=== PATIENT | female | born 1985 | race Two or more races ===

== ENCOUNTER 2024-08-04 06:18 | Day surgery (SDC) | payer MEDICARE, OTHER ==
[2024-08-01 14:21] VITALS: BMI 51.0
[~2024-08-04 06:18] MED LIST: metroNIDAZOLE-NS PMX 500 MG in SALINE 1 100ML.BAG IVPB PRN
[2024-08-04] MEDS: IV FLUID CONTINUATION 1,000 ML IV ONE (06:49)
[2024-08-04] MEDS ORDERED: MIDAZOLAM 2 MG/2 ML VIAL IV PRN (07:00)
[2024-08-04] MEDS ORDERED: HYDROmorphone 0.5 MG/0.5 ML SYRINGE IVP PRN (07:00)
[2024-08-04] MEDS: ONDANSETRON 4 MG/2 ML VIAL IVP ONE (07:20)
[2024-08-04] MEDS: DEXAMETHASONE SOD PHOSPHATE 4 MG/ML 1 ML VIAL IV ONE (07:20)
[2024-08-04] MEDS: LACTATED RINGERS 1,000 ML IV SCH (07:21)
[2024-08-04 07:25] VITALS: RESP 16
[2024-08-04] MEDS ORDERED: hydrALAZINE HCL 20 MG/ML 1 ML VIAL ONE (07:30)
[2024-08-04] MEDS ORDERED: MIDAZOLAM 2 MG/2 ML VIAL ONE (07:30)
[2024-08-04] MEDS ORDERED: PROPOFOL 10 MG/ML 20 ML VIAL IV ONE (07:30)
[2024-08-04] MEDS ORDERED: fentaNYL (PF) 50 MCG/ML 2 ML AMP ONE (07:30)
[2024-08-04] MEDS ORDERED: LIDOCAINE 1% INJ 10MG/ML (20 ML MDV) ONE (07:30)
[2024-08-04] MEDS ORDERED: SUCCINYLCHOLINE CHLORIDE 200 MG/10 ML VIAL IV ONE (07:30)
[2024-08-04] MEDS ORDERED: LABETALOL 5 MG/ML VIAL MDV ONE (07:30)
[2024-08-04] MEDS ORDERED: KETOROLAC 15 MG/ML 1 ML VIAL ONE (07:30)
[2024-08-04] MEDS: ceFAZolin 3 GM in SODIUM CHLORIDE 0.9% 100 ML IVPB PRN (07:35)
[2024-08-04 10:33] VITALS: TEMP 97.6
--- NOTE | 2024-08-04 11:23 | P.GSCN ---
History of Present Illness Consult date: 08/04/24 (Pt) Reason for Consult: Pt presented to the OR with need or dental yazidism and a root canal and crown on #21 -4 BWS -1 PA,s #20-22 -Periodic exam -#30 DO Resin glass ionomer, Filtek Bulk shade A3 -#8 MLIF resin shade A3 filtk supreme -#21 is not saveable Discussed with parents and got the ok to proceed with a three unit bridge -#21 Root extraction -#20-22 3 unit Bruxzir bridge, temp crowns made with polycarbonate temp crows and structure, cemented with temp ledezma. -Asked for Toradol IV for patient before discharge. Post op instructions given to patient -No smoking, no alcohol, no salt water rinses, no drinking through a straw or sucking on hard candy for 24 hrs. Pain medication (Motrin 800mg) as needed every six hours. Pt's dad stated he has some at home. Past Medical History Additional Past Medical History / Comment(s): developmentally disabled History of Any Multi-Drug Resistant Organisms: None Reported Past Surgical History: No Surgical Hx Reported Additional Past Anesthesia/Blood Transfusion Reaction / Comm: never had anesthesia Smoking Status: Never smoker - Past Family History Mother Family Medical History: Hypertension Father Family Medical History: AFIB, Hypertension Medications and Allergies Home Medications Medication Instructions Recorded Confirmed Type Ibuprofen [Motrin Ib] 2 tab PO Q6H PRN 08/01/24 08/04/24 History norgestimate-ethinyl estradioL 1 tablet PO DAILY 08/01/24 08/04/24 History [Jeanine 0.25-0.035 mg Tablet] Allergies Allergy/AdvReac Type Severity Reaction Status Date / Time No Known Allergies Allergy Verified 08/01/24 12:28 Surgical - Exam Vital Signs Temp Pulse Resp BP Pulse Ox 97.9 F 82 16 202/103 99 08/04/24 07:13 08/04/24 07:13 08/04/24 07:13 08/04/24 07:13 08/04/24 07:13
[2024-08-04 11:42] VITALS: BP 162/94; PULSE 73
== END 2024-08-04 12:09 | disposition home or self-care (01) ==
LOC: OR 06:18 → EEVIPCON 06:18 → OR 12:09
PROVIDERS: ATTEND Dentist
DX: K02.9 Dental caries, unspecified
CPT/HCPCS: 81025